=== PATIENT | male | born 1960 | race Caucasian/White ===

== ENCOUNTER 2017-04-29 09:58 | Observation (INO) | payer OTHER ==
[~2017-04-29] VITALS: Ht 182.9 cm; Wt 82.1 kg
[2017-04-29 10:16] VITALS: BP 152/87; PULSE 84; RESP 16; TEMP 98; O2SAT 96
--- NOTE | 2017-04-29 10:27 | PD ---
HPI Chief Complaint: Chest Pain Time Seen by Provider: 10:04 Travel History International Travel<30 days: No Contact w/Intl Traveler<30days: No Traveled to known affect area: No History of Present Illness HPI 56yo M with no significant PMH presents to the ED with c/o midsternal chest pain since yesterday. Said it feels like someone is sitting on his chest. It is intermittent and associated with some sob. Pain is worst with movement. Had similar chest pain 8 years ago and went to ED and everything was fine. 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 Pt has been coughing a lot lately and is a smoker. Said he is going through divorce and stressed. Denies any fever, n/v, abdominal pain, focal weakness or numbness. Denies any history of DVT, PE, hemoptysis. PFSH Past Medical History Medical History: Denies Significant Hx Influenza Vaccination: Yes Past Surgical History Surgical History: No Previous Surgery Social History Alcohol Use: Yes (WEEKLY) Tobacco Use: Yes (2 PPD) Substance Use: No Allergies-Medications (Allergen,Severity, Reaction): Coded Allergies: No Known Allergies (Verified Allergy, Unknown, 04/29/17) Reported Meds & Prescriptions Reported Meds & Active Scripts Active Motrin Ib (Ibuprofen) 200 Mg Tablet 600 Mg PO TID Review of Systems Except as stated in HPI: all other systems reviewed are Neg Physical Exam Narrative GENERAL: 56yo M in mild distress. SKIN: Focused skin assessment warm/dry. HEAD: Atraumatic. Normocephalic. EYES: Pupils equal and round. No scleral icterus. No injection or drainage. CHEST WALL: No rash. Not tender to palpation. CARDIOVASCULAR: Regular rate and rhythm. No murmur appreciated. RESPIRATORY: No accessory muscle use. Clear to auscultation. Breath sounds equal bilaterally. GASTROINTESTINAL: Abdomen soft, non-tender, nondistended. MUSCULOSKELETAL: No obvious deformities. No clubbing. No cyanosis. No edema. NEUROLOGICAL: Awake and alert. No obvious cranial nerve deficits. Motor grossly within normal limits. Normal speech. PSYCHIATRIC: Appropriate mood and affect; insight and judgment normal. Data Data Last Documented VS Vital Signs Date Time Temp Pulse Resp B/P (MAP) Pulse Ox O2 Delivery O2 Flow Rate FiO2 04/29/17 10:16 98.0 84 16 152/87 (108) 96 Orders Orders Basic Metabolic Panel (Bmp) (04/29/17 10:21) Complete Blood Count With Diff (04/29/17 10:21) Magnesium (Mg) (04/29/17 10:21) Prothrombin Time / Inr (Pt) (04/29/17 10:21) Act Partial Throm Time (Ptt) (04/29/17 10:21) Troponin I (04/29/17 10:21) Chest, Single Ap (04/29/17 10:21) Aspirin (Aspirin) (04/29/17 11:00) Place In Observation (04/29/17 11:52) Activity Bed Rest With Brp (04/29/17 11:52) Vital Signs (Adult) Q4H (04/29/17 11:52) Cardiac Rhythm .As Directed (04/29/17 11:52) Notify Dr: Other .PRN (04/29/17 11:52) Notify DrJodee Parameters (04/29/17 11:52) Resp Oxygen Nasal Cannula (04/29/17 ) Diet Npo (04/29/17 Lunch) Ckmb (Isoenzyme) Profile (04/29/17 13:30) Troponin I (04/29/17 13:30) Electrocardiogram (04/29/17 13:30) ^ Obtain (04/29/17 11:52) Sodium Chloride 0.9% Flush (Ns Flush) (04/29/17 12:00) Sodium Chloride 0.9% Flush (Ns Flush) (04/29/17 21:00) Acetaminophen (Tylenol) (04/29/17 12:00) Acetamin-Hydrocod 325-7.5 Mg ([place] 7.5 (04/29/17 12:00) Ondansetron Inj (Zofran Inj) (04/29/17 12:00) Nitroglycerin Sl (Nitrostat Sl) (04/29/17 12:00) Aspirin (Aspirin) (04/30/17 09:00) Fruit Loader / Telemetry ANNIKA.Q8H (04/29/17 11:52) Admit Order (Ed Use Only) (04/29/17 11:56) CKMB (04/29/17 13:20) CKMB% (04/29/17 13:20) Labs Laboratory Tests Test 04/29/17 10:30 White Blood Count 6.7 TH/MM3 Red Blood Count 5.31 MIL/MM3 Hemoglobin 16.3 GM/DL Hematocrit 48.5 % Mean Corpuscular Volume 91.3 FL Mean Corpuscular Hemoglobin 30.8 PG Mean Corpuscular Hemoglobin Concent 33.7 % Red Cell Distribution Width 12.7 % Platelet Count 434 TH/MM3 Mean Platelet Volume 6.8 FL Neutrophils (%) (Auto) 54.2 % Lymphocytes (%) (Auto) 38.4 % Monocytes (%) (Auto) 6.2 % Eosinophils (%) (Auto) 0.1 % Basophils (%) (Auto) 1.1 % Neutrophils # (Auto) 3.6 TH/MM3 Lymphocytes # (Auto) 2.6 TH/MM3 Monocytes # (Auto) 0.4 TH/MM3 Eosinophils # (Auto) 0.0 TH/MM3 Basophils # (Auto) 0.1 TH/MM3 CBC Comment DIFF FINAL Differential Comment Prothrombin Time 11.2 SEC Prothromb Time International Ratio 1.1 RATIO Activated Partial Thromboplast Time 26.3 SEC Blood Urea Nitrogen 7 MG/DL Creatinine 1.00 MG/DL Random Glucose 110 MG/DL Calcium Level 9.2 MG/DL Magnesium Level 2.5 MG/DL Sodium Level 137 MEQ/L Potassium Level 4.0 MEQ/L Chloride Level 105 MEQ/L Carbon Dioxide Level 24.3 MEQ/L Anion Gap 8 MEQ/L Estimat Glomerular Filtration Rate 78 ML/MIN Troponin I LESS THAN 0.02 NG/ML MDM Medical Decision Making Medical Screen Exam Complete: Yes Emergency Medical Condition: Yes Interpretation(s) EKG: NSR 78bpm. Normal axis. 1st AV block. No ST segment elevation or depression. Differential Diagnosis ACS vs. pneumonia vs. musculoskeletal pain vs. anxiety Narrative Course 56yo M with chest pain that feels like someone is sitting on his chest. Labs reviewed, unremarkable. Troponin negative. CXR negative. Will admit to chest pain center for serial EKG and cardiac enzymes. Diagnosis Primary Impression: Chest pain Qualified Codes: R07.9 - Chest pain, unspecified Admitting Information Admitting Physician Requests: Observation Scripts Ibuprofen (Motrin Ib) 200 Mg Tablet 600 MG PO TID for Inflammation, #30 TAB Prov: Douglas Becerril 04/29/17 Daya Fletcher DO Apr 29, 2017 10:27
--- NOTE | 2017-04-29 10:37 | RADRPT ---
EXAM DATE/TIME: 04/29/2017 10:26 [facility] COMPARISON: No previous studies available for comparison. INDICATIONS : Chest pain, pressure MEDICAL HISTORY : None. SURGICAL HISTORY : None. ENCOUNTER: Initial ACUITY: 1 day PAIN SCORE: 8/10 LOCATION: Bilateral chest FINDINGS: A single view of the chest demonstrates the lungs to be symmetrically aerated without evidence of mas s, infiltrate or effusion. The cardiomediastinal contours are unremarkable. Old left ninth rib fract ure. CONCLUSION: No acute disease. Beltran Egan MD on April 29, 2017 at 10:35 Board Certified Radiologist. This report was verified electronically.
[2017-04-29 10:38] LABS: AUTOMATED NEUTROPHIL # 3.6 TH/MM3 (1.8-7.7); BASOPHIL # 0.1 TH/MM3 (0-0.2); BASOPHIL % 1.1 % (0.0-2.0); EOSINOPHIL % 0.1 % (0.0-4.0); HEMATOCRIT 48.5 % (39.0-51.0); HEMOGLOBIN 16.3 GM/DL (13.0-17.0); LYMPH % 38.4 % (9.0-44.0); LYMPHOCYTE # 2.6 TH/MM3 (1.0-4.8); MEAN CELL VOLUME 91.3 FL (80.0-100.0); MEAN CORPUSCULAR HEMOGLOBIN 30.8 PG (27.0-34.0); MEAN CORPUSCULAR HGB CONC 33.7 % (32.0-36.0); MEAN PLATELET VOLUME 6.8 FL (7.0-11.0); MONO % 6.2 % (0.0-8.0); MONOCYTE # 0.4 TH/MM3 (0-0.9); NEUT % 54.2 % (16.0-70.0); PLATELET COUNT 434 TH/MM3 (150-450); RED BLOOD COUNT 5.31 MIL/MM3 (4.50-5.90); RED CELL DISTRIBUTION WIDTH 12.7 % (11.6-17.2); WHITE BLOOD COUNT 6.7 TH/MM3 (4.0-11.0)
[2017-04-29 10:46] LABS: CHLORIDE 105 MEQ/L (98-107); SODIUM (NA) 137 MEQ/L (136-145)
[2017-04-29 10:48] LABS: BICARBONATE 24.3 MEQ/L (21.0-32.0); CALCIUM 9.2 MG/DL (8.5-10.1); GLUCOSE,RANDOM 110 MG/DL (74-106); MAGNESIUM 2.5 MG/DL (1.5-2.5)
[2017-04-29 10:49] LABS: BLOOD UREA NITROGEN 7 MG/DL (7-18)
[2017-04-29 10:50] LABS: INTERNATIONAL NORMALIZED RATIO 1.1 RATIO; PROTHROMBIN TIME - PATIENT 11.2 SEC (9.8-11.6)
[2017-04-29 10:57] LABS: TROPONIN I LESS THAN 0.02 NG/ML (0.02-0.05)
[2017-04-29] MEDS ORDERED: ASPIRIN 325 MG TAB PO ONE (11:00)
[2017-04-29 11:01] LABS: GLOMERULAR FILTRATION RATE 78 ML/MIN (>89)
[2017-04-29] MEDS ORDERED: SODIUM CHLORIDE 0.9% FLUSH 10 ML FLUSH IV FLUSH PRN (12:00)
[2017-04-29] MEDS ORDERED: ONDANSETRON HCL 4 MG/2 ML VIAL IV PUSH PRN (12:00)
[2017-04-29] MEDS ORDERED: ACETAMINOPHEN 500 MG CPLT PO PRN (12:00)
[2017-04-29] MEDS ORDERED: ACETAMINOPHEN/HYDROcodone 325 MG/7.5 MG TAB PO PRN (12:00)
[2017-04-29 13:30] VITALS: BP 155/88; PULSE 91; RESP 18; O2SAT 98
[2017-04-29] MEDS: NITROGLYCERIN 0.4 MG SL 25 TABS/BTL SL PRN ×2 (13:41→13:46)
--- NOTE | 2017-04-29 13:42 | HHI.HP ---
[facility] No Primary Care Physician Admission Diagnosis Chest pain Diagnoses: (1) Chest pain Travel History International Travel<30 Days: No Contact w/Intl Traveler <30 Da: No Traveled to Known Affected Are: No History of Present Illness 56-year-old male with no chronic medical illnesses who presented to the hospital because of chest discomfort. Patient states that since 9 PM last night he has been experiencing a heaviness type sensation in the middle part of his chest. He indicates that the pain has remained constant with waxing and waning of pain from 5-9 on a pain scale. She states that is worse whenever he moves or takes a deep breath. 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 Patient denies any nausea, vomiting, shortness of breath, dyspnea. He indicates that he has some upper respiratory symptoms to include runny nose, sore throat, laryngitis, cough few days prior to developing this discomfort. Patient indicates that the pain has not resolved he decided come to emergency department for evaluation. Patient with minimal risk factors to include age and tobacco use. Patient denies any previous cardiac workup. Patient was recommended by ER physician to be observed in the chest pain center. Review of Systems Cardiovascular: COMPLAINS OF: Chest pain Except as stated in HPI: all other systems reviewed are Neg Past Family Social History Past Medical History No chronic medical illnesses Past Surgical History No previous surgeries Reported Medications No home medications Allergies: Coded Allergies: No Known Allergies (Verified Allergy, Unknown, 04/29/17) Family History Reviewed and unremarkable for any heart disease, diabetes, cancer, seizure, stroke. Father had mesothelioma Social History Patient smokes 2 pack a cigarettes a day since he was 17 years old. Denies any alcohol at this time or any illicit drug use Physical Exam Vital Signs Vital Signs Date Time Temp Pulse Resp B/P (MAP) Pulse Ox O2 Delivery O2 Flow Rate FiO2 04/29/17 13:30 91 18 155/88 (110) 98 Room Air 04/29/17 10:16 98.0 84 16 152/87 (108) 96 Physical Exam GENERAL: Well-developed, well-nourished, in no acute distress. alert and orientated HEENT: Head is normocephalic without any lesions or masses noted. Facial features are symmetric. Eyes: Pupils equal round reactive to light. Extraocular muscles are intact. Conjunctivae were clear. Oropharyngeal: Pharynx without any erythema edema. Tongue is midline without deviation. Buccal mucosa is moist without any masses or lesions NECK: Supple without any masses. Trachea midline no deviation. No JVD, no bruits are appreciated CARDIAC: Regular rhythm, regular rate. S1/S2 are heard. No murmurs gallops or rubs. Reproducible palpable tenderness noted over direct palpation of his sternum LUNGS: Clear to auscultation bilaterally. No wheeze, rhonchi or rales. No use of accessory muscles on inspiration or expiration. ABDOMEN: Soft, nontender. Nondistended. Bowel sounds heard in all 4 quadrants. No organomegaly or masses. Negative rebound, negative guarding EXTREMITIES: No edema, pulses are equal bilaterally. No cyanosis or clubbing NEUROLOGY: Mood and affect appear appropriate. Cranial nerves II through XII grossly intact. Muscle strength 5/5 in upper and lower extremities bilaterally. Deep tendon reflexes are 2+ in upper and lower extremities bilaterally. Laboratory Laboratory Tests Test 04/29/17 10:30 04/29/17 13:20 White Blood Count 6.7 Red Blood Count 5.31 Hemoglobin 16.3 Hematocrit 48.5 Mean Corpuscular Volume 91.3 Mean Corpuscular Hemoglobin 30.8 Mean Corpuscular Hemoglobin Concent 33.7 Red Cell Distribution Width 12.7 Platelet Count 434 Mean Platelet Volume 6.8 Neutrophils (%) (Auto) 54.2 Lymphocytes (%) (Auto) 38.4 Monocytes (%) (Auto) 6.2 Eosinophils (%) (Auto) 0.1 Basophils (%) (Auto) 1.1 Neutrophils # (Auto) 3.6 Lymphocytes # (Auto) 2.6 Monocytes # (Auto) 0.4 Eosinophils # (Auto) 0.0 Basophils # (Auto) 0.1 CBC Comment DIFF FINAL Differential Comment Prothrombin Time 11.2 Prothromb Time International Ratio 1.1 Activated Partial Thromboplast Time 26.3 Blood Urea Nitrogen 7 Creatinine 1.00 Random Glucose 110 Calcium Level 9.2 Magnesium Level 2.5 Sodium Level 137 Potassium Level 4.0 Chloride Level 105 Carbon Dioxide Level 24.3 Anion Gap 8 Estimat Glomerular Filtration Rate 78 Troponin I LESS THAN 0.02 Result Diagram: 04/29/17 1030 04/29/17 1030 Imaging Last Impressions Chest X-Ray 04/29/17 1021 Signed Impressions: Service Date/Time: Saturday, April 29, 2017 10:26 - CONCLUSION: No acute disease. MD Beth Magallanes VTE Risk Assessment Beth VTE Risk Assessment: No/Low Risk (score <= 1) Caprini Risk Assessment Model Point Value = 1 Point Value = 2 Point Value = 3 Point Value = 5 Age 41-60 Minor surgery BMI > 25 kg/m2 Swollen legs Varicose veins or History of unexplained or recurrent spontaneous Oral contraceptives or hormone replacement Sepsis (< 1 month) Serious lung disease, including pneumonia (< 1 month) Abnormal pulmonary function Acute myocardial infarction Congestive heart failure (< 1 month) History of inflammatory bowel disease Medical patient at bed rest Age 61-74 Arthroscopic surgery Major open surgery (> 45 min) Laparoscopic surgery (> 45 min) Malignancy Confined to bed (> 72 hours) Immobilizing plaster cast Central venous access Age >= 75 History of VTE Family history of VTE Factor V Leiden Prothrombin [id number] Lupus anticoagulant Anticardiolipin antibodies Elevated serum homocysteine Heparin-induced thrombocytopenia Other congenital or acquired thrombophilia Stroke (< 1 month) Elective arthroplasty Hip, pelvis, or leg fracture Acute spinal cord injury (< 1 month) Prophylaxis Regimen Total Risk Factor Score Risk Level Prophylaxis Regimen 0-1 Low Early ambulation 2 Moderate Order ONE of the following: *Sequential Compression Device (SCD) *Heparin 5000 units SQ BID 3-4 Higher Order ONE of the following medications: *Heparin 5000 units SQ TID *Enoxaparin/Lovenox 40 mg SQ daily (WT < 150 kg, CrCl > 30 mL/min) *Enoxaparin/Lovenox 30 mg SQ daily (WT < 150 kg, CrCl > 10-29 mL/min) *Enoxaparin/Lovenox 30 mg SQ BID (WT < 150 kg, CrCl > 30 mL/min) AND/OR *Sequential Compression Device (SCD) 5 or more Highest Order ONE of the following medications: *Heparin 5000 units SQ TID (Preferred with Epidurals) *Enoxaparin/Lovenox 40 mg SQ daily (WT < 150 kg, CrCl > 30 mL/min) *Enoxaparin/Lovenox 30 mg SQ daily (WT < 150 kg, CrCl > 10-29 mL/min) *Enoxaparin/Lovenox 30 mg SQ BID (WT < 150 kg, CrCl > 30 mL/min) AND *Sequential Compression Device (SCD) Assessment and Plan Assessment and Plan Chest pain, atypical Patient with increased risk factor to include age, tobacco use Pain is reproducible on palpation and has remained constant. Could be secondary to costochondritis Patient was ruled out for acute coronary event with serial cardiac enzymes which have remained negative EKG shows sinus rhythm with first-degree AV block Patient be continued on aspirin, nitroglycerin as needed Exercise stress test was performed that did not indicate any underlying ischemia Toradol was given to the patient with significant improvement of his pain DVT prevention Low risk, early ambulation Discharge disposition Discharge home in stable condition Activity: Ad luna. Diet: Healthy heart diet Medications per medication reconciliation Follow-up primary medical doctor in one week Problem Qualifiers (1) Chest pain: Qualified Codes: R07.9 - Chest pain, unspecified Douglas Becerril Apr 29, 2017 13:42
[2017-04-29 13:47] VITALS: BP 118/78; PULSE 84; RESP 16; O2SAT 95
[2017-04-29 13:51] VITALS: RESP 16
[2017-04-29 13:55] LABS: TROPONIN I LESS THAN 0.02 NG/ML (0.02-0.05)
[2017-04-29] MEDS ORDERED: KETOROLAC TROMETHAMINE 30 MG/ML (IVP) VIAL IV PUSH ONE (14:00)
[2017-04-29 14:10] VITALS: O2SAT 95
[2017-04-29] MEDS ORDERED: IBUP-1129 PO (15:24)
--- NOTE | 2017-04-29 15:25 | HHI.DCPOC ---
Discharge Care Plan Diagnosis: (1) Chest pain Goals to Promote Your Health * To prevent worsening of your condition and complications * To maintain your health at the optimal level Directions to Meet Your Goals Take your medications as prescribed Follow your dietary instruction Follow activity as directed Keep your appointments as scheduled Take your immunizations and boosters as scheduled If your symptoms worsen call your PCP, if no PCP go to Urgent Care Center or Emergency Room Smoking is Dangerous to Your Health. Avoid second hand smoke Call the 24-hour hour crisis hotline for domestic abuse at Douglas Becerril Apr 29, 2017 15:25
[2017-04-29] MEDS ORDERED: SODIUM CHLORIDE 0.9% FLUSH 10 ML FLUSH IV FLUSH SCH (21:00)
[2017-04-30] MEDS ORDERED: ASPIRIN 325 MG TAB PO SCH (09:00)
--- NOTE | 2017-04-30 16:35 | EKG ---
Date Performed: 04/29/2017 Time Performed: 10:13:04 PTAGE: 56 years EKG: Sinus rhythm WITH SINUS ARRHYTHMIA WITH FIRST DEGREE AV BLOCK ABNORMAL ECG NO PREVIOUS TRACING DOCTOR: Santiago Worthington Interpretating Date/Time 04/30/2017 16:33:45
--- NOTE | 2017-04-30 16:35 | EKG ---
Date Performed: 04/29/2017 Time Performed: 13:19:46 PTAGE: 56 years EKG: Sinus rhythm WITH FIRST DEGREE AV BLOCK ABNORMAL ECG PREVIOUS TRACING : 04/29/2017 10.13 Since previous tracing, no significant change noted DOCTOR: Santiago Worthington Interpretating Date/Time 04/30/2017 16:33:25
--- NOTE | 2017-04-30 16:36 | TR ---
Date Performed: 04/29/2017 Time Performed: 14:46:12 DOCTOR: Santiago Worthington DRUG LIST: CLINICAL HISTORY: REASON FOR TEST: REASON FOR ENDING: Completed Protocol OBSERVATION: CONCLUSION: Patient tolerated KHARI protocol with Total Exercise Time=6:51 Maximum SZ=049 % Max HR Achieved=86.0% Maximum QS=647/70. Testing stopped secondary to goals acheived. During peak exercis e, patient had quick upsloping ST segments, no significant ST depressions. HR and BP appropriate resp onse to exercise. Recovery period HR and BP returned to baseline COMMENTS: Patient exercised using the Khari protocol. No electrocardiographic changes were seen to suggest ischemia. Hemodynamic response to exercise was normal. No significant arrhythmia was prese nt.
== END 2017-04-29 16:56 | disposition home or self-care (01) ==
LOC: PHED 09:58 → PHEDA 11:57 → PH3A 14:15
PROVIDERS: ADMIT Hospitalist; ATTEND Hospitalist
DX: R07.89 Other chest pain (principal); I44.0 Atrioventricular block, first degree; I49.9 Cardiac arrhythmia, unspecified; R06.02 Shortness of breath; R05 Cough; F17.210 Nicotine dependence, cigarettes, uncomplicated
CPT/HCPCS: 71045; 80048; 82550; 82552; 83735; 84484; 85025; 85610; 85730; 93005; 93017; 96374; 96376; 99285; G0378; J1885